=== PATIENT | female | born 1960 | race American Indian/Alaskan Native ===

== ENCOUNTER 2020-07-21 08:22 | Outpatient (CLI) | payer MEDICAID, OTHER | END 2020-07-21 08:23 | disposition home or self-care (01) | LOC: LABHHL 08:22 | PROVIDERS: ATTEND Surgery | DX: N63.11 Unspecified lump in the right breast, upper outer quadrant (principal) | CPT/HCPCS: 88305 ==

== ENCOUNTER 2020-08-28 13:39 | Outpatient (CLI) | payer MEDICAID ==
--- NOTE | 2020-08-28 14:46 | XRay Report ---
BILATERAL FEMURS 8 VIEWS PELVIS ONE VIEW INDICATION / CLINICAL INFORMATION: Bilateral leg pain. Pelvic pain. COMPARISON: None available. FINDINGS: BONES and JOINT(S): No acute fracture or subluxation. 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 Nonspecific tiny lucencies are seen throughout the bones of the pelvis. SOFT TISSUES: No significant abnormality. ADDITIONAL FINDINGS: None. IMPRESSION: 1. Nonspecific generalized lucent changes throughout the pelvis without a suspicious dominant lesion. Considerations include myeloma/metastatic disease and changes secondary to other metabolic disease. 2. Degenerative changes as above. Signer Name: Moisés Whalen MD Signed: 08/28/2020 2:41 PM Workstation Name: [id number]
== END 2020-08-28 13:40 | disposition home or self-care (01) ==
LOC: XRAY 13:39
PROVIDERS: ATTEND Orthopaedic Surgery
DX: M16.0 Bilateral primary osteoarthritis of hip (principal); M25.552 Pain in left hip; M17.0 Bilateral primary osteoarthritis of knee; M79.606 Pain in leg, unspecified; M47.816 Spondylosis without myelopathy or radiculopathy, lumbar region
CPT/HCPCS: 72170